=== PATIENT | female | born 1980 | race African-American/Black ===

== ENCOUNTER → 2020-01-14 | Day surgery (SDC) | payer OTHER ==
--- NOTE | 2020-01-15 16:22 | PATH ---
Surgical Pathology Report Patient Name: BIPIN MATOS Med. Rec. #: [id number] /Age/Gender: 1980 (Age: 39) / F Account: [id number] Location: [facility] RAD[facility] MR Taken: 01/14/2020 Received: 01/14/2020 Reported: 01/15/2020 Physicians: Jono Mahoney M.D. Specimen(s) Received ENHANCING LESION LEFT BREAST Clinical History New right breast cancer, enhancing lesion left breast Final Diagnosis LEFT BREAST ENHANCING LESION, BIOPSY: BREAST TISSUE WITH PROLIFERATIVE FIBROCYSTIC CHANGES INCLUDING USUAL DUCTAL HYPERPLASIA (UDH), SCLEROSING ADENOSIS WITH ASSOCIATED MICROCALCIFICATIONS, AND STROMAL FIBROSIS. Comment: Immunohistochemical stains (block 1 and 2) performed and interpreted at [facility] show the following results: smooth muscle myosin heavy chain and p63 highlight the intact myoepithelial cell layer in the areas of sclerosing adenosis; E-cadherin shows no evidence of atypical lobular hyperplasia. Positive and negative controls (internal if applicable) show appropriate results. Electronically Signed Odalis Almonte M.D. Gross Description Received in formalin labeled "left breast," is a 3.4 x 2.2 x 0.3 cm aggregate of ma-yellow, irregular to cylindrical portions of fibroadipose tissue. The formalin is filtered and the specimen is entirely submitted in 2 cassettes. Time to formalin fixation: 2 minutes Total formalin fixation time: Approximately 6 hours. /01/14/2020 saudi/01/14/2020
== END | disposition home or self-care (01) ==
LOC: FRADUS-SUR 11:50
PROVIDERS: ATTEND Surgery Surgical Oncology
PROC: 0H9U3ZX Drainage of Left Breast, Percutaneous Approach, Diagnostic (ICD-10-PCS; principal; 2020-01-14)
DX: N60.22 Fibroadenosis of left breast (principal); N60.32 Fibrosclerosis of left breast; N60.82 Other benign mammary dysplasias of left breast; N64.89 Other specified disorders of breast; N63.20 Unspecified lump in the left breast, unspecified quadrant
CPT/HCPCS: 19085; 77065-TC; 88305-TC; 88341-TC; 88342-TC; A4648; A9579; C1887

== ENCOUNTER 2020-05-05 06:58 | Day surgery (SDC) | payer OTHER ==
[2020-03-13 09:42] VITALS: BMI 32.1
[2020-05-05] MEDS ORDERED: BUPIVACAINE HCL/PF 0.25% (2.5MG/ML) 10 ML VIAL ONE (10:09)
[2020-05-05] MEDS ORDERED: LIDOCAINE HCL/PF 2% SDV 5ML VIAL ONE (10:10)
[2020-05-05] MEDS ORDERED: ONDANSETRON 4 MG/2 ML VIAL ONE ×2 (10:10→15:20)
[2020-05-05] MEDS ORDERED: DEXAMETHASONE SOD PHOSPHATE 4 MG/1 ML VIAL ONE (10:10)
[2020-05-05] MEDS ORDERED: ROCURONIUM BROMIDE 50 MG/5 ML VIAL ONE (10:11)
[2020-05-05] MEDS ORDERED: fentaNYL CITRATE 250 MCG/5 ML VIAL ONE ×2 (10:11→12:55)
[2020-05-05] MEDS ORDERED: MIDAZOLAM HCL 2 MG/2 ML SINGLE DOSE VIAL ONE (10:11)
[2020-05-05] MEDS ORDERED: ceFAZolin SODIUM 1 GM VIAL ONE ×2 (10:49→14:50)
[2020-05-05] MEDS ORDERED: DESFLURANE GAS 240 ML BOTTLE IH ONE (11:30)
[2020-05-05] MEDS ORDERED: ONDANSETRON 4 MG/2 ML VIAL IVPUSH PRN ×2 (12:05→15:23)
[2020-05-05] MEDS ORDERED: KETOROLAC TROMETHAMINE 30 MG/1 ML VIAL IVPUSH PRN (12:05)
[2020-05-05] MEDS ORDERED: DEXTROSE 5%-0.45% SALINE 1,000 ML IV SCH (12:15)
[2020-05-05] MEDS ORDERED: PROPOFOL 20 ML ONE ×4 (12:55)
[2020-05-05] MEDS ORDERED: ePHEDrine SULFATE 50 MG/1 ML AMPULE ONE (14:16)
[2020-05-05] MEDS ORDERED: NEOSTIGMINE METHYLSULFATE 0.5 MG/ML - 10 ML MDV ONE (14:52)
[2020-05-05] MEDS ORDERED: GLYCOPYRROLATE 0.2 MG/1 ML VIAL ONE (14:53)
[2020-05-05] MEDS ORDERED: ACETAMINOPHEN INJECTION 100 ML IVPB ONE (15:20)
[2020-05-05] MEDS ORDERED: PROMETHAZINE HCL 25 MG/1 ML VIAL IVPUSH PRN (15:23)
[2020-05-05] MEDS ORDERED: oxyCODONE HCL 5 MG TABLET PO PRN ×2 (15:23)
[2020-05-05] MEDS: ACETAMINOPHEN 1000 MG/100 ML VIAL (NON FORMULARY) IVPB ONE ×2 (15:27→17:49)
[2020-05-05] MEDS ORDERED: oxyCODONE HCL 5 MG TABLET ONE (16:46)
[2020-05-05] MEDS ORDERED: SODIUM CHLORIDE 0.45% 1,000 ML IV SCH ×2 (18:45→18:51)
[2020-05-05] MEDS: CEFAZOLIN 1 GM/D5W 1 GM/50 ML BAG IVPB SCH (20:15)
[2020-05-06] MEDS: CEFAZOLIN 1 GM/D5W 1 GM/50 ML BAG IVPB SCH ×2 (02:37→08:58)
[2020-05-06 06:27] VITALS: BP 101/56; PULSE 74; TEMP 98.4
[2020-05-06] MEDS ORDERED: PANTOPRAZOLE 20 MG TABLET PO SCH (10:00)
== END 2020-05-06 12:46 | disposition home or self-care (01) ==
LOC: FASU 06:58 → FM/S 18:18 → FASU 05-06 12:46
PROVIDERS: ATTEND Surgery Surgical Oncology
PROC: 0HBU0ZZ Excision of Left Breast, Open Approach (ICD-10-PCS; 2020-05-05)
PROC: 0HBT0ZZ Excision of Right Breast, Open Approach (ICD-10-PCS; principal; 2020-05-05 11:15)
PROC: 0HRT07Z Replacement of Right Breast with Autologous Tissue Substitute, Open Approach (ICD-10-PCS; 2020-05-05 11:15)
DX: D05.11 Intraductal carcinoma in situ of right breast (principal)
CPT/HCPCS: 19281; 76098-TC-FY; 81025; 88304-TC; 88305-TC; 88307-TC; 88341-TC; 88342-TC; 94760; J0131